=== PATIENT | male | born 1990 | race Hispanic/Latino ===

== ENCOUNTER 2018-12-03 11:49 | Emergency (ER) | payer SELFPAY ==
[2018-12-03] MEDS ORDERED: IBUPROFEN 400 MG TABLET ONE (13:09)
[2018-12-03] MEDS ORDERED: IBUPROFEN 200 MG TAB ONE (13:09)
== END 2018-12-03 13:52 | disposition home or self-care (01) ==
LOC: EDH 11:49
DX: S83.91XA Sprain of unspecified site of right knee, initial encounter (principal); X50.1XXA Overexertion from prolonged static or awkward postures, initial encounter; Y93.44 Activity, trampolining; Y92.89 Other specified places as the place of occurrence of the external cause; Y99.8 Other external cause status
CPT/HCPCS: 29505; 73560